=== PATIENT | female | born 1995 | race Caucasian/White ===

== ENCOUNTER 2025-01-01 12:25 | Emergency (ER) | payer MEDICARE, SELFPAY ==
[2025-01-01 12:26] VITALS: BP 124/85
[2025-01-01 12:58] LABS: % Basophils 0.2 % (0-2); % Immature Granulocytes 0.2 % (0-0.5); % Lymphocytes 27.3 % (20.5-51.1); % Monocytes 16.3 % (1.7-9.3); Absolute Eosinophils 0.1 10^3/uL (0-0.7); Absolute Lymphocytes 1.1 10^3/uL (1.2-3.4); Absolute Monocytes 0.7 10^3/uL (0.1-0.6); Absolute Neutrophils 2.2 10^3/uL (1.4-6.5); Hematocrit 36.5 % (37.0-47.0); Hemoglobin 11.4 g/dL (12.0-16.0); Mean Corp Hgb Conc. 31.2 g/dL (33.0-37.0); Mean Corpuscular Hgb 22.1 pg (27.0-31.0); Mean Corpuscular Volume 70.9 fL (81.0-99.0); Mean Platelet Volume 9.5 fL (7.4-10.4); Nucleated Red Blood Cells % 0 %; Platelet Count 343 10^3/uL (130-400); Red Blood Cell Count 5.15 10^6/uL (4.20-5.40); Red Cell Dist. Width 17.2 % (11.5-14.5); White Blood Cell Count 4.1 10^3/uL (4.8-10.8)
[2025-01-01 13:12] LABS: ALT (SGPT) 32 U/L (0-35); AST (SGOT) 27 U/L (14-36); Albumin 4.4 g/dl (3.5-5.0); Alkaline Phosphatase 74 U/L (38-126); Blood Urea Nitrogen 9 mg/dl (7-17); Calcium 10.2 mg/dl (8.4-10.2); Carbon Dioxide 24 mmol/L (22-30); Chloride 108 mmol/L (98-107); Glucose 117 mg/dl (70-99); Potassium 4.4 mmol/L (3.5-5.1); Sodium 142 mmol/L (135-145); Total Bilirubin 0.5 mg/dl (0.2-1.3); Total Protein 8.1 g/dl (6.3-8.2); eGFR > 60.00
[2025-01-01 13:18] LABS: HCG, Serum Qualitative Screen Negative
[2025-01-01 13:23] LABS: Troponin I < 0.012 ng/ml
[2025-01-01 13:47] LABS: TSH Reflex To Free T4 < 0.02 uIU/ml (0.47-4.68)
[2025-01-01 13:57] VITALS: BP 125/84
[2025-01-01 13:58] VITALS: BMI 23.0
[2025-01-01 14:00] VITALS: BP 126/79
[2025-01-01 14:16] LABS: Free T4 > 6.99 ng/dl (0.78-2.19)
--- NOTE | 2025-01-01 14:25 | ED.GENMED ---
History of Present Illness
General
Chief Complaint: Cardiac Symptoms
Time Seen by Provider: 01/01/25 14:12
History of Present Illness
History of Present Illness:
REVIEW OF OLD RECORDS
- The patient has a history of hypothyroidism and esophageal surgery in [place] but otherwise no significant records here at [facility]
- I reviewed the office EKG which shows sinus rhythm with frequent PACs (computer read is A-fib however it appears to be sinus) and the primary send here
CHIEF COMPLAINT(S)
Palpitations, fatigue, itchy skin, and headache.
HISTORY OF PRESENT ILLNESS
The patient is a 29-year-old female presenting with palpitations, fatigue, itchy skin, and headache over the past few weeks. She reports being aware of her heart beating rapidly. Two years ago, she was treated for hypothyroidism with levothyroxine.
However, current thyroid function tests reveal a significantly low Thyroid-Stimulating Hormone (TSH) level, indicative of hyperthyroidism. The patient denies abdominal pain.
MEDICATIONS
- control
PHYSICAL EXAM
- Cardiac: Tachycardia appreciated upon auscultation
- Respiratory: Breath sounds clear upon auscultation
- General: Well appearing in no distress, thin, healthy appearing
- HEENT: Moist oral mucosa
- Pulmonary: No respiratory distress, breath sounds are clear and equal
- Abdomen: Soft with no peritoneal signs, no tenderness
- Neurologic: Excellent strength all extremities, no coordination deficits
- Psychiatric: Appropriate mental status, normal insight and judgement
- Extremities: Nontender, no edema, moves all extremities equally
- Skin: Some acne type of lesions on the anterior chest wall
PROBLEM LIST
- Acute: Hyperthyroidism, tachycardia, palpitations, fatigue, itchy skin, headache
PLAN
- Consult with technical report writer hollow tile partition erector for further evaluation and management of suspected hyperthyroidism.
- Re-evaluation of thyroid function and assessment for potential medication adjustments.
DIFFERENTIAL DIAGNOSIS
The Differential Diagnosis includes, in no particular order and is not limited to:
- Hyperthyroidism
- Anxiety-induced palpitations
- Cardiac arrhythmias
- Medication-related side effects
- Primary hyperaldosteronism (unlikely given presentation)
- Pheochromocytoma
- Anemia
- Electrolyte imbalance
- Panic disorder
- Caffeine or stimulant use
RADIOLOGY
- Not indicated
EKG
- Sinus 115, PACs, normal axis
LABS
- White count 4.1, hemoglobin 11.4, chemistries unremarkable, troponin less than 0.012, TSH less than 0.02, free T4 7
UPDATE
-I sent message to on-call endocrinology, Dr. Giordano at 2:40 PM. She recommends 2 x 10 mg methimazole tablets daily and follow-up with them in 4 weeks and wanted to make sure LFTs were normal (normal).
01/01/25 - 15:01
Patient is suspected to have symptoms related to an overactive thyroid. An on-call technical report writer recommended starting methimazole to lower thyroid levels. Additionally, patient will be prescribed a low-dose medication to control heart rate.
Patient advised to schedule a follow-up appointment with Dr. Giordano in four weeks. Prescriptions to be sent to patients pharmacy.
Phy Exam
Physical Exam
Physical Exam:
See HPI
Course
Orders/Labs/Results
Orders:
Orders
01/01/25 12:31
Electrocardiogram (*1) Urgent
Reason for Study: Palpitations
EKG- Treatment ONCE
Test Result ONCE
01/01/25 12:47
Complete Blood Count/With Diff Urgent
Comprehensive Metabolic Panel Urgent
Free T4 Urgent
HCG, Serum Qualitative Screen Urgent
TSH Reflex To Free T4 Urgent
Troponin I Urgent
01/01/25 14:31
Metoprolol [Lopressor] 2.5 mg IV NOW STA
01/01/25 14:50
Methimazole [Tapazole] 10 mg PO NOW STA
Abnormal Lab Results
01/01/25
12:47
WBC 4.1 L 10^3/uL
(4.8-10.8)
Hgb 11.4 L g/dL
(12.0-16.0)
Hct 36.5 L %
(37.0-47.0)
MCV 70.9 L fL
(81.0-99.0)
MCH 22.1 L pg
(27.0-31.0)
MCHC 31.2 L g/dL
(33.0-37.0)
RDW 17.2 H %
(11.5-14.5)
Absolute Lymphs (auto) 1.1 L 10^3/uL
(1.2-3.4)
Absolute Monos (auto) 0.7 H 10^3/uL
(0.1-0.6)
Monocytes % 16.3 H %
(1.7-9.3)
Chloride 108 H mmol/L
(98-107)
Creatinine 0.5 L mg/dL
(0.6-1.0)
Glucose 117 H mg/dl
(70-99)
TSH (Reflex) < 0.02 L uIU/ml
(0.47-4.68)
Free T4 > 6.99 H ng/dl
(0.78-2.19)
01/01/25 12:47
01/01/25 12:47
Vital Signs
Initial and Last Documented VS:
Initial Vital Signs
Temp Pulse Resp BP Pulse Ox
36.8 C 120 16 124/85 98
01/01/25 12:26 01/01/25 12:26 01/01/25 12:26 01/01/25 12:26 01/01/25 12:26
Last Documented Vital Signs
Temp Pulse Resp BP Pulse Ox
36.8 C 115 18 139/83 98
01/01/25 12:26 01/01/25 14:45 01/01/25 14:45 01/01/25 14:41 01/01/25 14:00
*Pulse Oximetry
Patient hypoxic: no
*Header Setup Operator Interpretation
Rate: tachycardiac
Interpretation: abnormal
Heart Rate: 115
Rhythm: sinus and PAC's
*Critical Care Note
Total Time (30-74mins, 75-104mins- exclusive of procedures): Not Applicable
ED Attending Note
-
Portions of this chart may have been created with voice recognition software.� Occasional wrong word or��sound alike� substitutions may have occurred due to the inherent limitations of voice recognition software.
Discharge Plan
Departure
Referrals:
Catina Hubbard CRNP [Family Provider, Family Practice]
Interventions
Interventions:
*Risk Screen - Suicide Last Done: 01/01/25 12:26
*General Assessment Last Done: 01/01/25 13:59
*Neglect/Abuse Screening Last Done: 01/01/25 12:26
*ED- Fall Risk Assessment Last Done: 01/01/25 13:59
*ED COVID-19 Vaccine History Last Done: 01/01/25 13:59
ED- Pulmonary Assessment Last Done: 01/01/25 13:59
ED- Cardiac Assessment Last Done: 01/01/25 13:59
Discharge Date and Time
Print Language: MOROCCAN
[2025-01-01 14:41] VITALS: BP 139/83
[2025-01-01] MEDS: LOPRESSOR 2.5 MG IV (14:42)
[2025-01-01 15:00] VITALS: BP 120/79
[2025-01-01] MEDS: TAPAZOLE 10 MG PO (15:00)
== END 2025-01-01 15:39 | disposition home or self-care (01) ==
LOC: EMR 12:25
PROVIDERS: Emergency Medicine; EMERGENCY PHYSICIAN Emergency Medicine; FAMILY PHYSICIAN Nurse Practitioner Family
DX: E05.90 Thyrotoxicosis, unspecified without thyrotoxic crisis or storm (principal)
CPT/HCPCS: 99284; 96374; 80053; 84439; 84443; 84484; 84703; 85025; 93005